=== PATIENT | female | born 1965 | race Caucasian/White ===

== ENCOUNTER 2017-05-29 14:17 | Emergency (ER) | payer SELFPAY ==
[~2017-05-29 14:17] MED LIST: CITA20TA4 PO; CLON0.1T PO; OXYC1TAB63 PO; TRAZ50TA12 PO
[2017-05-29 14:20] VITALS: BP 119/78; PULSE 97; RESP 14; TEMP 97.5; O2SAT 95
--- NOTE | 2017-05-29 14:25 | PD ---
Physical Exam Time Seen by Provider: 14:23 Narrative Cough and congestion x 2 weeks. Trying otc meds with no improvement. Cough is productive is dark brown sputum. Hx. of seizures, sleep d/o, HTN. Smokes tobacco cigarettes, "a couple a day." Data Data Last Documented VS Vital Signs Date Time Temp Pulse Resp B/P (MAP) Pulse Ox O2 Delivery O2 Flow Rate FiO2 05/29/17 15:58 05/29/17 14:20 97.5 97 14 95 Orders Orders Chest, Pa & Lat (05/29/17 ) MDM Medical Record Reviewed: Yes Supervised Visit with IVANA: No Scripts Doxycycline Hyclate (Doxycycline Hyclate) 100 Mg Cap 100 MG PO BID for Infection, #20 CAP 0 Refills Prov: Vivek Multani MD 05/29/17 Condition: Stable Codie Jimenez May 29, 2017 14:25
--- NOTE | 2017-05-29 15:17 | RADRPT ---
EXAM DATE/TIME: 05/29/2017 15:01 [facility] COMPARISON: No previous studies available for comparison. INDICATIONS : Cough and chest pain. MEDICAL HISTORY : Hypertension. Current smoker. SURGICAL HISTORY : None. ENCOUNTER: Initial ACUITY: 3 weeks PAIN SCORE: 3/10 LOCATION: middle chest. FINDINGS: PA and lateral views of the chest demonstrate the lungs to be symmetrically aerated without evidence of mass, infiltrate or effusion. The cardiomediastinal contours are unremarkable. Osseous structure s are intact. CONCLUSION: 1. No acute cardiopulmonary disease. Adarsh Cowan MD on May 29, 2017 at 15:15 Board Certified Radiologist. This report was verified electronically.
[2017-05-29] MEDS ORDERED: DOXY100C PO ×2 (15:43→15:54)
--- NOTE | 2017-05-29 15:47 | PD ---
HPI Chief Complaint: Respiratory Symptoms Time Seen by Provider: 15:42 Travel History International Travel<30 days: No Contact w/Intl Traveler<30days: No Traveled to known affect area: No History of Present Illness HPI This is a 51-year-old female who presents for evaluation of cough. Symptoms started 2 weeks ago. The cough is productive with brown sputum. She endorses a sore throat. She denies fevers or chills, rash, recent travel, sick contacts. He endorses tobacco use. She has no other complaints at this time. PFSH Past Medical History Autoimmune Disease: No Bipolar Disorder: Yes Anxiety: No Depression: No Heart Rhythm Problems: No Cancer: No Cardiovascular Problems: Yes High Cholesterol: No Chemotherapy: No Chest Pain: No Congestive Heart Failure: No Cerebrovascular Accident: No Diabetes: No Diminished Hearing: No Endocrine: No Gastrointestinal Disorders: Yes GERD: No Genitourinary: Yes Headaches: Yes Hiatal Hernia: No Hypertension: Yes Immune Disorder: No Implanted Vascular Access Dvce: Yes Kidney Stones: Yes Musculoskeletal: No Neurologic: Yes (tarlov cysts) Psychiatric: Yes (BIPOLAR) Reproductive: No Respiratory: No Immunizations Current: Yes Migraines: Yes Radiation Therapy: No Renal Failure: No Seizures: Yes Ulcer: No Tetanus Vaccination: < 5 Years ?: Not Menopausal: Yes : 8 Para: 2 Miscarriage: 3 : 3 Tubal Ligation: Yes Past Surgical History Abdominal Surgery: Yes AICD: No Arteriovenous Shunt: No Body Medical Devices: "stomach stent"? Cardiac Surgery: No Ear Surgery: No Endocrine Surgery: No Eye Surgery: No Genitourinary Surgery: No Gynecologic Surgery: Yes (Removal of left ovary due to ovarian cancer - done with tubal ligation) Insulin Pump: No Joint Replacement: Yes Neurologic Surgery: Yes (crany,skull fx) Oral Surgery: No Pacemaker: No Thoracic Surgery: No Other Surgery: Yes (ercp and biopies 06/04/12) Social History Alcohol Use: Yes ("OCCASIONALLY") Tobacco Use: No Substance Use: Yes Allergies-Medications (Allergen,Severity, Reaction): Coded Allergies: No Known Allergies (Verified , 08/31/16) Reported Meds & Prescriptions Reported Meds & Active Scripts Active Doxycycline Hyclate 100 Mg Cap 100 Mg PO BID Clonidine (Clonidine HCl) 0.1 Mg Tab 0.1 Mg PO DAILY Oxycodone-Acetaminophen 5-325 mg Tab 1 Tab PO Q6H PRN Reported Citalopram (Citalopram Hydrobromide) 20 Mg Tab 20 Mg PO DAILY Trazodone (Trazodone HCl) 50 Mg Tab Unknown Dose PO Review of Systems General / Constitutional: No: Fever, Chills HENT: Positive: Sore Throat Respiratory: Positive: Cough, No: Wheezing, Hemoptysis Gastrointestinal: No: Abdominal Pain Physical Exam Narrative GENERAL: Well-developed well-nourished female in no acute distress sitting upright in hospital bed vital signs reviewed SKIN: Warm and dry. HEAD: Atraumatic. Normocephalic. EYES: Pupils equal and round. No scleral icterus. No injection or drainage. ENT: No nasal bleeding or discharge. Mucous membranes pink and moist. No oral pharyngeal erythema or exudate. NECK: Trachea midline. No JVD. No lymphadenopathy. CARDIOVASCULAR: Regular rate and rhythm. No murmur appreciated. RESPIRATORY: No accessory muscle use. Mild crackles at the left lung base. No wheezing. GASTROINTESTINAL: Abdomen soft, non-tender, nondistended. Hepatic and splenic margins not palpable. MUSCULOSKELETAL: No obvious deformities. No edema. Data Data Last Documented VS Vital Signs Date Time Temp Pulse Resp B/P (MAP) Pulse Ox O2 Delivery O2 Flow Rate FiO2 05/29/17 14:20 97.5 97 14 119/78 (92) 95 Orders Orders Chest, Pa & Lat (05/29/17 ) [facility] Medical Decision Making Medical Screen Exam Complete: Yes Emergency Medical Condition: Yes Medical Record Reviewed: Yes Differential Diagnosis Pneumonia, bronchitis, reactive airway disease, influenza Narrative Course 51-year-old female presents with 2 weeks of productive cough, sore throat. Chest x-ray performed in triage is negative for acute process. She does have mild crackles at the left lung base and therefore she'll be discharged with doxycycline. Diagnosis Primary Impression: Bronchitis Additional Instructions: Medication as prescribed. Stable hydrated well-nourished. Avoid tobacco products. Follow-up with primary care physician as needed. Return for any emergent medical conditions. Med/Other Pt SpecificInfo: Prescription(s) given Scripts Doxycycline Hyclate (Doxycycline Hyclate) 100 Mg Cap 100 MG PO BID for Infection, #20 CAP 0 Refills Prov: Vivek Multani MD 05/29/17 Disposition: 01 DISCHARGE HOME Condition: Stable Sara Purcelly P. PA May 29, 2017 15:47
== END 2017-05-29 15:59 | disposition home or self-care (01) ==
LOC: NEPK 14:17
DX: J40 Bronchitis, not specified as acute or chronic (principal); F31.9 Bipolar disorder, unspecified; I10 Essential (primary) hypertension; Z87.442 Personal history of urinary calculi
CPT/HCPCS: 71020; 99283

== ENCOUNTER 2017-07-05 00:50 | Emergency (ER) | payer OTHER ==
[~2017-07-05] VITALS: Ht 154.9 cm; Wt 56.0 kg
[~2017-07-05 00:50] MED LIST changes: +DOXY100C PO
[2017-07-05 00:57] VITALS: BP 154/96; PULSE 97; RESP 18; TEMP 98; O2SAT 98
--- NOTE | 2017-07-05 01:44 | PD ---
HPI Chief Complaint: Medical Clearance Time Seen by Provider: 00:56 Travel History International Travel<30 days: No Contact w/Intl Traveler<30days: No Traveled to known affect area: No History of Present Illness HPI Patient comes in by police under Chavez's act for alcohol intoxication. Patient admits [place] the [place] with [place]. Patient was reportedly going be taken to long term initially however her blood pressure was found to be too high was brought to the emergency department instead. Patient denies any medical complaints this time. Denies any chest pain, source breath, fevers, no pain, nausea, vomiting, loss change in bowel or bladder, or headaches. Patient denies anything making her symptoms better or worse. PFSH Past Medical History Autoimmune Disease: No Bipolar Disorder: Yes Anxiety: No Depression: No Heart Rhythm Problems: No Cancer: No Cardiovascular Problems: Yes High Cholesterol: No Chemotherapy: No Chest Pain: No Congestive Heart Failure: No Cerebrovascular Accident: No Diabetes: No Diminished Hearing: No Endocrine: No Gastrointestinal Disorders: Yes GERD: No Genitourinary: Yes Headaches: Yes Hiatal Hernia: No Hypertension: Yes Immune Disorder: No Implanted Vascular Access Dvce: Yes Kidney Stones: Yes Musculoskeletal: No Neurologic: Yes (tarlov cysts) Psychiatric: Yes (BIPOLAR) Reproductive: No Respiratory: No Immunizations Current: Yes Migraines: Yes Radiation Therapy: No Renal Failure: No Seizures: Yes Ulcer: No ?: Not LMP: na Menopausal: Yes : 8 Para: 2 Miscarriage: 3 : 3 Tubal Ligation: Yes Past Surgical History Abdominal Surgery: Yes AICD: No Arteriovenous Shunt: No Body Medical Devices: "stomach stent"? Cardiac Surgery: No Ear Surgery: No Endocrine Surgery: No Eye Surgery: No Genitourinary Surgery: No Gynecologic Surgery: Yes (Removal of left ovary due to ovarian cancer - done with tubal ligation) Insulin Pump: No Joint Replacement: Yes Neurologic Surgery: Yes (crani) Oral Surgery: No Pacemaker: No Thoracic Surgery: No Other Surgery: Yes (ercp and biopies 06/04/12) Social History Alcohol Use: Yes (weekly) Tobacco Use: No Substance Use: Yes Allergies-Medications (Allergen,Severity, Reaction): Coded Allergies: No Known Allergies (Verified , 08/31/16) Reported Meds & Prescriptions Reported Meds & Active Scripts Active Doxycycline Hyclate 100 Mg Cap 100 Mg PO BID Clonidine (Clonidine HCl) 0.1 Mg Tab 0.1 Mg PO DAILY Oxycodone-Acetaminophen 5-325 mg Tab 1 Tab PO Q6H PRN Reported Citalopram (Citalopram Hydrobromide) 20 Mg Tab 20 Mg PO DAILY Trazodone (Trazodone HCl) 50 Mg Tab Unknown Dose PO Review of Systems ROS Limitations: Intoxication Except as stated in HPI: all other systems reviewed are Neg Physical Exam Exam Limitations: Intoxication Narrative GENERAL: Well-developed, well nourished, in no acute distress, and non-ill appearing. Alcohol noted on breath. SKIN: Focused skin assessment warm and dry. HEAD: Atraumatic. Normocephalic. EYES: Pupils equal and round. EOMI. No scleral icterus. No injection or drainage. ENT: No nasal bleeding or discharge. Mucous membranes pink and moist. NECK: Trachea midline. Supple. No nuclear rigidity. CARDIOVASCULAR: Regular rate and rhythm. No murmur appreciated. RESPIRATORY: No accessory muscle use. No respiratory distress. Clear to auscultation. Breath sounds equal bilaterally. GASTROINTESTINAL: Abdomen soft, non-tender, nondistended, and no guarding. Hepatic and splenic margins not palpable. No pulsatile mass. MUSCULOSKELETAL: No obvious deformities. No clubbing. No cyanosis. No edema. Full range of motion. NEUROLOGICAL: Awake and alert. No obvious cranial nerve deficits. Motor grossly within normal limits. Normal speech. PSYCHIATRIC: Appropriate mood and affect; insight and judgment normal. Data Data Last Documented VS Vital Signs Date Time Temp Pulse Resp B/P (MAP) Pulse Ox O2 Delivery O2 Flow Rate FiO2 07/05/17 00:57 98.0 97 18 154/96 (115) 98 MDM Medical Decision Making Medical Screen Exam Complete: Yes Emergency Medical Condition: Yes Differential Diagnosis Alcohol intoxication, substance abuse, medical clearance, other Narrative Course Patient was seen and examined. Patient will be monitored in the emergency department until clinically sober and able to ambulate on their own or until a sober responsible adult comes to pick them up at which time Chavez's act lifted. RN is aware of this. Patient is ambulating around the ER without difficulty. She is not slurring her words is clinically sober at this time. Patient managed to call herself a cab to take her home. Patient with the room until a taxicab ride. Patient was safely placed on a taxicab was given the address of her residence by the RN to be taken home. Diagnosis Primary Impression: Alcohol intoxication Qualified Codes: F10.920 - Alcohol use, unspecified with intoxication, uncomplicated Referrals: [facility] Patient Instructions: Alcohol Intoxication (DC), General Instructions Additional Instructions: Follow-up with your primary care physician and/or [facility] for detox. Return to the emergency department if symptoms get worse. Disposition: 01 DISCHARGE HOME Condition: Stable Jerad White Jul 05, 2017 01:44
== END 2017-07-05 02:33 | disposition home or self-care (01) ==
LOC: NEPD 00:50
DX: F10.920 Alcohol use, unspecified with intoxication, uncomplicated (principal); I10 Essential (primary) hypertension; Z86.59 Personal history of other mental and behavioral disorders; Z86.79 Personal history of other diseases of the circulatory system; Z87.19 Personal history of other diseases of the digestive system; Z87.448 Personal history of other diseases of urinary system; Z86.69 Personal history of other diseases of the nervous system and sense organs
CPT/HCPCS: 99283